=== PATIENT | female | born 1965 | race American Indian/Alaskan Native ===

== ENCOUNTER 2019-01-22 10:13 | Emergency (ER) | payer OTHER ==
[2019-01-22 10:23] VITALS: BP 169/91
--- NOTE | 2019-01-22 11:30 | XRay Report ---
LEFT ANKLE, 3 views: History: Fall. A cast has been applied which obscures bony detail. A nondisplaced oblique distal left fibular fracture is noted 3 cm proximal to the ankle joint. No calcified callus is identified. The distal tibia and talar dome are intact. Normal articulation at the ankle joint. There is severe soft tissue swelling. IMPRESSION: Nondisplaced distal left fibular fracture.
--- NOTE | 2019-01-22 11:48 | Emergency Department Report ---
HPI - General Chief Complaint: Extremity Injury, Lower Time Seen by Provider: 01/22/19 11:36 - HPI HPI: 53-year-old -[place] female presents to the emergency department with complaint of left ankle pain that radiates up to her lower leg has been going on since last night when the patient fell while roller skating. She says that she "felt the bone pop." Since that time she has been having the pain, swelling and has been unable to bear weight. She has a past medical history of asthma and diabetes. She has not taken anything for her symptoms prior to arrival but did use some ice and Ben wrap. ED Past Medical Hx - Past Medical History Hx Diabetes: Yes Hx Asthma: Yes - Surgical History Hx Breast Surgery: Yes (reduction) Additional Surgical History: Hysterectomy, C/S - Social History Smoking Status: Never Smoker Substance Use Type: None - Medications Home Medications: Home Medications Medication Instructions Recorded Confirmed Last Taken Type HYDROcodone/APAP 5-325 [Streator 1 each PO Q6HR PRN #12 tablet 01/22/19 Unknown Rx 5/325] ED Review of Systems ROS: Stated complaint: POSS BROKEN ANKLE Other details as noted in HPI Comment: All other systems reviewed and negative Constitutional: denies: chills, fever Eyes: denies: eye pain, vision change ENT: denies: ear pain, throat pain Respiratory: denies: cough, shortness of breath Cardiovascular: denies: chest pain, palpitations Gastrointestinal: denies: abdominal pain, vomiting Genitourinary: denies: dysuria, frequency Musculoskeletal: joint swelling, arthralgia. denies: back pain Skin: denies: rash, lesions Neurological: denies: headache, weakness Physical Exam - Physical Exam Vital Signs: Vital Signs 01/22/19 10:21 Temperature 98 F Pulse Rate 65 Respiratory 16 Rate Blood Pressure 169/91 O2 Sat by Pulse 99 Oximetry Physical Exam: GENERAL: The patient is well-developed well-nourished. HENT: Normocephalic. Atraumatic. Patient has moist mucous membranes. EYES: Extraocular motions are intact. NECK: Supple. Trachea is midline. CHEST/LUNGS: Clear to auscultation. There is no respiratory distress noted. HEART/CARDIOVASCULAR: Regular. There is no tachycardia. There is no murmur. ABDOMEN: There is no abdominal distention. SKIN: Nonpitting swelling to the distal left lower extremity and ankle. NEURO: The patient is awake, alert, and oriented. The patient is cooperative. The patient has no focal neurologic deficits. The patient has normal speech. MUSCULOSKELETAL: There is tenderness to palpation to the circumferential left a nkle. Decreased range of motion of the left foot and ankle secondary to pain. Intact dorsalis pedis pulse. ED Course Vital Signs 01/22/19 10:21 Temperature 98 F Pulse Rate 65 Respiratory 16 Rate Blood Pressure 169/91 O2 Sat by Pulse 99 Oximetry ED Medical Decision Making - Radiology Data Radiology results: image reviewed interpreted by me: X-ray of the left ankle shows a distal left fibula fracture - Medical Decision Making Patient fell last night while roller skating and it caused a distal left fibula fracture. It does not appear significantly displaced or angulated. The patient is neurovascularly intact. Placed in a Niraj splint and will remain nonweightbearing to the left lower extremity. She has been given orthopedic referrals and some pain medication. She will return to the ER with any worsening of her symptoms or any acute distress. - Differential Diagnosis ankle sprain, ankle fracture, contusion Critical Care Time: No Critical care attestation.: If time is entered above; I have spent that time in minutes in the direct care of this critically ill patient, excluding procedure time. ED Disposition Clinical Impression: Hypertension Qualifiers: Hypertension type: essential hypertension Qualified Code(s): I10 - Essential (primary) hypertension Fracture of distal fibula Qualifiers: Encounter type: initial encounter Fracture type: closed Fracture morphology: unspecified fracture morphology Laterality: left Qualified Code(s): S82.832A - Other fracture of upper and lower end of left fibula, initial encounter for closed fracture Disposition: DC-01 TO HOME OR SELFCARE Is pt being admited?: No Condition: Stable Instructions: Ankle Fracture (ED), Hypertension (ED) Additional Instructions: Please follow up with an orthopedist later this week. You can use ice but do not get the splint wet. Remain in the splint and nonweightbearing on crutches until follow-up with the orthopedist. Return to the emergency Department with any worsening of your symptoms or any acute distress. Try and stay away from foods that are high in salt and caffeinated products to help with your blood pressure. Continue taking your blood pressure medication and keep a blood pressure log. You have been prescribed a medication that is sedating and therefore should not be taken prior to driving, working, and responsible for children and in no way should be mixed with alcohol of any quantity. Prescriptions: HYDROcodone/APAP 5-325 [Streator 5/325] 1 each PO Q6HR PRN #12 tablet PRN Reason: Pain Referrals: ESTEFANIA SINGLETON MD [Staff Physician] - 3-5 Days [facility] [Provider Group] - 3-5 Days Forms: Work/School Release Form(ED)
== END 2019-01-22 12:12 | disposition home or self-care (01) ==
LOC: ED 10:13
DX: S82.832A Other fracture of upper and lower end of left fibula, initial encounter for closed fracture (principal); I10 Essential (primary) hypertension; E11.9 Type 2 diabetes mellitus without complications; J45.909 Unspecified asthma, uncomplicated; Z90.710 Acquired absence of both cervix and uterus; Z88.6 Allergy status to analgesic agent; W18.30XA Fall on same level, unspecified, initial encounter; Y93.51 Activity, roller skating (inline) and skateboarding; Y92.89 Other specified places as the place of occurrence of the external cause; Y99.8 Other external cause status
CPT/HCPCS: 99283